=== PATIENT | female | born 1960 | race Hispanic/Latino ===

== ENCOUNTER 2022-12-02 12:50 | Observation (INO) | payer BC ==
[2022-12-02] MEDS ORDERED: Pantoprazole 40 MG VIAL IVP SCH ×2 (13:34→14:00)
[2022-12-02] MEDS ORDERED: Dextrose 50% Abboject 50 ML SYRINGE SLOW IVP PRN (13:35)
[2022-12-02] MEDS ORDERED: HumaLOG 300 UNITS/3 ML VIAL SC PRN (13:35)
[2022-12-02] MEDS ORDERED: Dextrose 5% in Water 1,000 ML IV PRN (13:35)
[2022-12-02] MEDS ORDERED: Artificial Tear Sol 15 ML BOT EA EYE PRN (13:40)
[2022-12-02] MEDS ORDERED: Ondansetron PF 4 MG/2 ML Vial IVP PRN (13:40)
[2022-12-02] MEDS ORDERED: Calcium Carbonate 500 MG ChewTAB PO PRN (13:40)
[2022-12-02] MEDS ORDERED: Moisturizing Cream (Eucerin) 113 GM JAR TOP PRN (13:40)
[2022-12-02] MEDS ORDERED: Benzonatate 100 MG CAP PO PRN (13:40)
[2022-12-02] MEDS ORDERED: Cepastat Lozenges 1 LOZ PO PRN (13:40)
[2022-12-02] MEDS ORDERED: diphenhydrAMINE 25 MG CAP PO PRN (13:40)
[2022-12-02] MEDS ORDERED: Lactated Ringer's 1,000 ML IV SCH (13:45)
[2022-12-02 15:09] LABS: Troponin I Less than 0.010 ng/mL (< 0.028)
[2022-12-02] MEDS: Acetaminophen 500 MG TAB PO PRN ×2 (15:26→23:59)
[2022-12-02] MEDS ORDERED: Carvedilol 6.25 MG TAB PO SCH (17:00)
[2022-12-02 17:23] LABS: Troponin I Less than 0.010 ng/mL (< 0.028)
[2022-12-02 19:48] VITALS: BMI 50.5
[2022-12-02] MEDS: Carvedilol 12.5 MG TAB PO SCH (20:17)
[2022-12-02 20:52] LABS: SARS-CoV-2 NAA Rapid Test Not Detected (NotDetected)
[2022-12-02] MEDS ORDERED: Ezetimibe 10 MG TAB PO SCH (21:00)
[2022-12-02] MEDS ORDERED: Rosuvastatin 20 MG TAB PO SCH (21:00)
[2022-12-02] MEDS ORDERED: Spironolactone 25 MG TAB PO SCH (21:00)
[2022-12-03 05:56] LABS: Anion Gap 12 mmol/L (10-20); BUN (Urea Nitrogen) 19 mg/dL (9.8-20.1); Calc. Creatinine Clearance 102 mL/min (70-130); Calcium 9.3 mg/dL (7.8-10.44); Carbon Dioxide 26 mmol/L (22-29); Chloride 102 mmol/L (98-107); Cholesterol 87 mg/dl (< 200 Desired); Estimated GFR 61; Glucose 139 mg/dL (70-105); HDL Cholesterol 29 mg/dL (>60 Neg Risk); LDL Cholesterol, Calculated 14 mg/dL; Potassium 3.6 mmol/L (3.5-5.1); Sodium 136 mmol/L (136-145); Triglycerides 220 mg/dL (Less than 150)
[2022-12-03] MEDS ORDERED: Clopidogrel Bisulfate 75 MG TAB PO SCH (09:00)
[2022-12-03] MEDS ORDERED: Aspirin Chewable 81 MG TAB PO SCH ×2 (09:00)
[2022-12-03] MEDS ORDERED: Fenofibrate 48 MG TAB PO SCH (09:00)
[2022-12-03] MEDS ORDERED: Pantoprazole 40 MG VIAL IVP SCH (09:00)
[2022-12-03] MEDS ORDERED: Lisinopril 20 MG TAB PO SCH ×2 (09:00)
[2022-12-03] MEDS: Carvedilol 12.5 MG TAB PO SCH (09:33)
[2022-12-03 09:34] VITALS: BP 117/58
[2022-12-03 09:55] VITALS: TEMP 98
[2022-12-03 12:09] LABS: Hemoglobin A1c 9.3 % (4.0-6.0)
== END 2022-12-03 09:56 | disposition home or self-care (01) ==
LOC: CSHTELE 12:50 → INTOOBSV 12:50
PROVIDERS: ADMIT Family Medicine; ATTEND Family Medicine
DX: R07.89 Other chest pain (principal); I25.10 Atherosclerotic heart disease of native coronary artery without angina pectoris; R19.7 Diarrhea, unspecified; R11.2 Nausea with vomiting, unspecified; I10 Essential (primary) hypertension; E78.5 Hyperlipidemia, unspecified; E11.9 Type 2 diabetes mellitus without complications; Z20.822 Contact with and (suspected) exposure to COVID-19; Z79.82 Long term (current) use of aspirin; Z79.02 Long term (current) use of antithrombotics/antiplatelets; Z79.84 Long term (current) use of oral hypoglycemic drugs; Z79.899 Other long term (current) drug therapy
CPT/HCPCS: 36415; 36416; 80048; 80061; 83036; 84484; 93005; 93010; 93306; 96374; C9113; G0378; J7120